=== PATIENT | female | born 1970 | race Caucasian/White ===

== ENCOUNTER 2021-02-13 05:55 | Day surgery (SDC) | payer BC ==
--- NOTE | 2021-02-09 12:55 | Anesthesia Consultation ---
Anesthesia Consult and Med Hx Date of service: 02/13/21 - Airway Anesthetic Teeth Evaluation: Good ROM Head & Neck: Adequate Mental/Hyoid Distance: Adequate Mallampati Class: Class I Intubation Access Assessment: Good - Pre-Operative Health Status ASA Pre-Surgery Classification: ASA3 Proposed Anesthetic Plan: General - Pulmonary Hx Smoking: No Hx Respiratory Symptoms: No - Cardiovascular System Hx Hypertension: Yes Hx Coronary Artery Disease: Yes (EF 45-50% on TTE 06/2020, normal stress test 06/2020) Hx Percutaneous Transluminal Coronary Angioplasty (PTCA): Yes (stent to LCx, angioplasty to LM/LAD 06/2019 ) Hx Cardia Arrhythmia: No (EKG 06/2020 on chart) - Central Nervous System Hx Neuromuscular Disorder: Yes (restless leg syndrome) CVA: No - Endocrine Hx Renal Disease: No (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 Recent outpatient cardiology evaluation on chart.
[~2021-02-13 05:55] MED LIST: EPINEPHrine/PF 1 MG/1 ML INJ IV ONE; SODIUM CHLORIDE 0.9% 250 ML IVPB IV ONE; SODIUM CHLORIDE 0.9% 50 ML IVPB IV ONE
[2021-02-13] MEDS ORDERED: MAGNESIUM OXIDE 400 MG TAB PO SCH (06:00)
[2021-02-13] MEDS ORDERED: ACETAMINOPHEN 500 MG TAB PO SCH (06:00)
[2021-02-13] MEDS ORDERED: GABAPENTIN 300 MG CAP PO NR (06:00)
[2021-02-13] MEDS ORDERED: LACTATED RINGERS 1,000 ML IV SCH (06:00)
[2021-02-13] MEDS ORDERED: ceFAZolin/Water 2 GM/20 ML 2 GM/20 ML SYRINGE IV NR (06:00)
[2021-02-13] MEDS ORDERED: SCOPOLAMINE TRANSDERMAL PATCH 72 HR TD NR (06:00)
[2021-02-13] MEDS ORDERED: BACTERIOSTATIC SODIUM CHLORIDE 0.9% 30 ML VIAL INFILTRATI ONE (06:44)
[2021-02-13] MEDS: MIDAZOLAM 2 MG/2 ML INJ IV NR ×2 (07:10→08:33)
[2021-02-13] MEDS ORDERED: SODIUM CHLORIDE 0.9% 500 ML 0 ML ONE (07:37)
[2021-02-13] MEDS ORDERED: SODIUM CHLORIDE 0.9% 250ML 250 ML ONE (07:37)
[2021-02-13] MEDS ORDERED: METHYLENE BLUE 50 MG/10 ML AMP ONE (07:37)
[2021-02-13] MEDS ORDERED: HYDROmorphone 1 MG/1 ML INJ IV PRN ×2 (07:37)
[2021-02-13] MEDS ORDERED: ONDANSETRON 4 MG/2 ML INJ IV PRN (07:37)
[2021-02-13] MEDS ORDERED: EPINEPHrine/PF 1 MG/1 ML INJ ONE ×2 (07:37→07:41)
--- NOTE | 2021-02-13 07:37 | Anesthesia Day of Surgery ---
Anesthesia Day of Surgery - Day of Surgery Patient Examined: Yes Patient H&P Reviewed: Yes Patient is NPO: Yes
[2021-02-13] MEDS ORDERED: SODIUM CHLORIDE 0.9% 50 ML ONE (07:47)
[2021-02-13] MEDS ORDERED: ceFAZolin 1 GM VIAL ONE (07:50)
[2021-02-13] MEDS ORDERED: SODIUM CHLORIDE P/F VIAL 10 ML 0 ML ONE (07:50)
[2021-02-13] MEDS ORDERED: ONDANSETRON 4 MG/2 ML INJ ONE (08:30)
[2021-02-13] MEDS ORDERED: LIDOCAINE MPF (2%) 20 MG/1 ML VIAL 5 ML ONE (08:30)
[2021-02-13] MEDS ORDERED: HYDROmorphone 1 MG/1 ML INJ ONE (08:30)
[2021-02-13] MEDS ORDERED: propofoL 200 MG/20 ML VIAL IV ONE (08:31)
[2021-02-13] MEDS ORDERED: ROCURONIUM 50 MG/5 ML INJ IV ONE (09:34)
[2021-02-13] MEDS ORDERED: dexAMETHasone 20 MG/5 ML VIAL ONE (09:59)
[2021-02-13] MEDS ORDERED: LIDOCAINE 1%/EPINEPHRINE 1:100,000 VIAL (20 ML) INFILTRATI ONE ×2 (10:13→10:21)
[2021-02-13] MEDS ORDERED: LIDOCAINE/EPI 1% 1:50,000 (OR) 20 ML VIAL INFILTRATI ONE ×2 (10:15)
[2021-02-13] MEDS ORDERED: SODIUM CHLORIDE 0.9% 250 ML IVPB IV ONE (10:15)
[2021-02-13] MEDS ORDERED: SODIUM CHLORIDE 0.9% 50 ML IVPB IV ONE (10:15)
[2021-02-13] MEDS ORDERED: EPINEPHrine/PF 1 MG/1 ML INJ IV ONE (10:15)
[2021-02-13] MEDS ORDERED: ePHEDrine SULFATE 50 MG/1 ML INJ ONE (10:22)
[2021-02-13] MEDS ORDERED: SODIUM CHLORIDE 0.9% IRR 1,500 ML BOTTLE IR ONE (10:31)
[2021-02-13] MEDS ORDERED: LACTATED RINGERS 1,000 ML ONE (10:46)
[2021-02-13] MEDS ORDERED: GLYCOPYRROLATE 0.4 MG/2 ML INJ ONE (12:33)
[2021-02-13] MEDS ORDERED: NEOSTIGMINE 10MG/10 ML INJ MDV ONE (12:34)
--- NOTE | 2021-02-13 12:57 | Short Stay Summary ---
Short Stay Documentation Date of service: 02/13/21 - Allergies and Medications Current Medications: Allergies shellfish derived Allergy (Verified 02/09/21 11:32) N&V Home Medications Medication Instructions Recorded Confirmed Last Taken Type Aspirin [Adult Aspirin] 81 mg PO DAILY 02/09/21 02/09/21 02/08/21 History AtorvaSTATin [Lipitor] 40 mg PO QHS 02/09/21 02/09/21 02/12/21 History Galcanezumab-Gnlm [Emgality] 120 mg SQ Q4W 02/09/21 02/09/21 02/12/21 History Isosorbide Dinitrate [Isordil] 30 mg PO BID 02/09/21 02/09/21 02/13/21 04:45 History Levothyroxine [Synthroid] 75 mcg PO QAM 02/09/21 02/09/21 02/13/21 04:45 History Metoprolol [Lopressor] 25 mg PO BID 02/09/21 02/09/21 02/13/21 04:45 History Pantoprazole [Protonix] 40 mg PO QDAY 02/09/21 02/09/21 02/13/21 04:45 History Rimegepant Sulfate [Nurtec Odt] 1 tab PO PRN PRN 02/09/21 02/09/21 02/12/21 History Zolpidem Tartrate [Ambien CR] 12.5 mg PO QHS 02/09/21 02/09/21 02/12/21 History Active Medications Acetaminophen (Acetaminophen 500 Mg Tab) 1,000 mg PO PREOP MAGUI Stop: 02/13/21 23:00 Last Admin: 02/13/21 07:00 Dose: 1,000 mg Documented by: Gabapentin (Gabapentin 300 Mg Cap) 300 mg PO PREOP NR Stop: 02/13/21 23:00 Last Admin: 02/13/21 07:00 Dose: 300 mg Documented by: Hydromorphone HCl (Hydromorphone 1 Mg/1 Ml Inj) 0.25 mg IV Q10MIN PRN PRN Reason: Pain, Moderate (4-6) Stop: 02/13/21 23:00 Hydromorphone HCl (Hydromorphone 1 Mg/1 Ml Inj) 0.5 mg IV Q10MIN PRN PRN Reason: Pain , Severe (7-10) Stop: 02/13/21 23:00 Lactated Ringer's (Lactated Ringers) 1,000 mls @ 100 mls/hr IV DIRECT MAGUI Stop: 02/13/21 23:59 Last Admin: 02/13/21 07:10 Dose: 100 mls/hr Documented by: Cefazolin Sodium (Ancef/Sterile Water 2 Gm/20 Ml) 2 gm in 20 mls @ 80 mls/hr IV PREOP NR; Protocol Stop: 02/13/21 23:01 Magnesium Oxide (Magnesium Oxide 400 Mg Tab) 400 mg PO PREOP MAGUI Last Admin: 02/13/21 07:00 Dose: 400 mg Documented by: Midazolam HCl (Midazolam 2 Mg/2 Ml Inj) 2 mg IV PREOP NR Stop: 02/13/21 23:00 Last Admin: 02/13/21 08:33 Dose: 2 mg Documented by: Ondansetron HCl (Ondansetron 4 Mg/2 Ml Inj) 4 mg IV ONCE PRN PRN Reason: Nausea And Vomiting Stop: 02/13/21 13:00 Scopolamine (Scopolamine Transdermal Patch 72 Hr) 1 each TD PREOP NR Stop: 02/13/21 23:00 Last Admin: 02/13/21 07:00 Dose: 1 each Documented by: - Brief post op/procedure progress note Date of procedure: 02/13/21 Pre-op diagnosis: Bilateral Acquired Breast Deformities secondary to mastectomy Post-op diagnosis: same Procedure: Bilateral revision of breast mounds Anesthesia: GETA Findings: see operative report Surgeon: CJ NASSAR (Dr Grace assisted) Estimated blood loss: other (25 ml) Pathology: none Condition: stable - Hospital course Hospital course: Outpatient surgery under general anesthesia - Disposition Condition at discharge: Good Disposition: 01 HOME / SELF CARE / HOMELESS - Discharge Diagnoses (1) Acquired breast deformity Status: Acute (2) Acquired breast deformity Status: Acute Short Stay Discharge Plan Activity: other (No strenous activity) Weight Bearing Status: Full Weight Bearing Diet: regular Wound: other (Keep steri strips dry and intact. May change gauze pads over the steri strips) Special Instructions: no heavy lifting Follow up with: DR ESSENCE [Other] - 7 Days
--- NOTE | 2021-02-13 13:07 | Operative Report ---
Operative Report Operative Report: Date: February 13, 2021 Post-operative diagnosis: Same Procedure name(s): Bilateral revision of breast mounds Surgeon: Bret Ortiz M.D. Meal Packer: Dr. Grace Anesthesia: General EBL: 25 mL Specimen: None Findings: Excise dogears on the left breast of 2.5 cm medial, 4 cm lateral and 26.5 cm of excess skin of the inferior lateral submammary fold Excise dogears on the right breast of 3 cm medial, 7 cm lateral and 19 cm of excess skin of the inferior lateral submammary fold Description of operation: The patient was sat upright and her breasts were marked. The dogears of the left breast mound transverse incision was marked each 1 with an ellipse. The excess skin of the inferior lateral breast submammary fold was marked along the submammary fold and the estimated excess skin was marked as an ellipse. The right breast was marked in a similar fashion. She was taken to the operating room placed in supine position underwent smooth induction of the general anesthesia. A sandbag was placed underneath the left hip to allow patient to rotate a little bit to get more access to the posterior lateral left breast mound. She was prepped and draped in the usual sterile fashion. Each ellipse was infiltrated with 1% lidocaine with 1 100,000 epinephrine. Starting on the left breast, the left medial ellipse was excised and closed with 3-0 Monocryl buried interrupted sutures and 3-0 Monocryl running subcuticular stitch length with 2.5 cm the lateral dogear ellipse was excised and closed with 3-0 Monocryl buried interrupted sutures and 3-0 Monocryl running subcuticular stitch for a total length of 4 cm. The excess skin of the left breast inferior lateral breast tissue was marked along the submammary fold this was excised through the skin subtenons tissue the skin was elevated superiorly the excess skin was tailor tacked with construction maria dolores the excess skin was marked. The maria dolores were removed the excess skin was excised the superficial fascial system was closed with 2-0 Vicryl buried interrupted sutures. The skin was closed with 3-0 Vicryl running intradermal suture and 3-0 Monocryl running subcuticular stitch. The right breast was performed in a similar fashion the left medial dogear was 3 cm to right medial dogear was 7 cm and the excess skin of the inferior lateral submammary fold was 19 cm. Skin-Prep and Steri-Strips were applied. Fluffy dressings was applied to top of applied. Patient was awakened and she was taken to recovery room in satisfactory condition. Dr. Ortiz dictating
[2021-02-13 16:08] VITALS: BP 102/49
--- NOTE | 2021-02-13 18:50 | Post Anesthesia Evaluation ---
- Post Anesthesia Evaluation Patient Participated: Yes Airway Patent: Yes Stable Respiratory Function: Yes Nausea/Vomiting: No Temp > 96.8F: Yes Pain Manageable: Yes Adequeate Hydration: Yes Anesthesia Complications: No Block Receding Appropriately: Not Applicable Patient on Ventilator: No
== END 2021-02-13 05:56 | disposition home or self-care (01) ==
LOC: OR 05:55
PROVIDERS: ATTEND Plastic Surgery
DX: N64.89 Other specified disorders of breast (principal); D64.9 Anemia, unspecified; E06.3 Autoimmune thyroiditis; G89.4 Chronic pain syndrome; M00.80 Arthritis due to other bacteria, unspecified joint; K21.9 Gastro-esophageal reflux disease without esophagitis; I11.9 Hypertensive heart disease without heart failure; I25.10 Atherosclerotic heart disease of native coronary artery without angina pectoris; E78.00 Pure hypercholesterolemia, unspecified; Z87.891 Personal history of nicotine dependence; Z87.01 Personal history of pneumonia (recurrent); Z90.13 Acquired absence of bilateral breasts and nipples; Z79.899 Other long term (current) drug therapy; Z98.890 Other specified postprocedural states; Z20.822 Contact with and (suspected) exposure to COVID-19
CPT/HCPCS: 19380; 81025; J0171; J0690; J1100; J1170; J2250; J2405; J2704; J2710; J7050; J7120; U0003; J7040; Q9968